=== PATIENT | female | born 1995 | race Two or more races ===

== ENCOUNTER 2020-09-27 10:13 | Outpatient (CLI) | payer OTHER | END 2020-09-27 10:20 | disposition home or self-care (01) | LOC: LAB 10:13 | PROVIDERS: ATTEND Obstetrics & Gynecology | DX: Z34.81 Encounter for supervision of other normal pregnancy, first trimester (principal) ==

== ENCOUNTER 2021-01-31 12:18 | Outpatient (CLI) | payer OTHER | END 2021-01-31 12:42 | disposition home or self-care (01) | LOC: NST 12:18 | PROVIDERS: ATTEND Obstetrics & Gynecology | DX: Z34.83 Encounter for supervision of other normal pregnancy, third trimester (principal) ==

== ENCOUNTER 2021-02-07 10:35 | Outpatient (CLI) | payer OTHER | END 2021-02-07 11:04 | disposition home or self-care (01) | LOC: NST 10:35 | PROVIDERS: ATTEND Obstetrics & Gynecology | DX: Z34.03 Encounter for supervision of normal first pregnancy, third trimester (principal) ==

== ENCOUNTER 2021-02-11 15:15 | Inpatient (IN) | payer OTHER ==
[~2021-02-11] VITALS: Ht 165.1 cm; Wt 75.7 kg
[2021-02-25] MEDS ORDERED: PRENATAL + DHA1 EAC1 PO (07:58)
== END 2021-02-26 16:16 | disposition home or self-care (01) | DRG 807 ==
LOC: OB/GYN 02-24 05:17 → LDR 02-24 05:17 → OB/GYN 02-24 11:45 → LDR 02-24 15:15 → OB/GYN 02-26 16:16
PROVIDERS: ADMIT Obstetrics & Gynecology; ATTEND Obstetrics & Gynecology
PROC: 10E0XZZ Delivery of Products of Conception, External Approach (ICD-10-PCS; principal; 2021-02-24)
PROC: 0HQ9XZZ Repair Perineum Skin, External Approach (ICD-10-PCS; 2021-02-24)
PROC: 4A1HXFZ Monitoring of Products of Conception, Cardiac Rhythm, External Approach (ICD-10-PCS; 2021-02-24)
DX: O70.0 First degree perineal laceration during delivery (principal); Z37.0 Single live birth; Z3A.39 39 weeks gestation of pregnancy

== ENCOUNTER 2021-02-18 14:33 | Outpatient (CLI) | payer OTHER | END 2021-02-18 15:00 | disposition home or self-care (01) | LOC: NST 14:33 | PROVIDERS: ATTEND Obstetrics & Gynecology Maternal & Fetal Medicine | DX: Z34.03 Encounter for supervision of normal first pregnancy, third trimester (principal) ==

== ENCOUNTER 2022-11-05 15:11 | Emergency (ER) | payer OTHER ==
[~2022-11-05] VITALS: Ht 165.1 cm; Wt 68.0 kg
[~2022-11-05 15:11] MED LIST: PRENATAL + DHA1 EAC1 PO
== END 2022-11-05 19:57 | disposition home or self-care (01) ==
LOC: ER 15:11
DX: O21.0 Mild hyperemesis gravidarum (principal); Z3A.11 11 weeks gestation of pregnancy

== ENCOUNTER 2022-12-08 15:44 | Outpatient (CLI) | payer OTHER | END 2022-12-08 17:06 | disposition home or self-care (01) | LOC: PRENATAL 15:44 | PROVIDERS: ATTEND Obstetrics & Gynecology Maternal & Fetal Medicine | DX: O35.9XX0 Maternal care for (suspected) fetal abnormality and damage, unspecified, not applicable or unspecified (principal); O35.3XX0 Maternal care for (suspected) damage to fetus from viral disease in mother, not applicable or unspecified; Z3A.19 19 weeks gestation of pregnancy ==

== ENCOUNTER 2023-03-08 14:58 | Outpatient (CLI) | payer OTHER | END 2023-03-08 16:53 | disposition home or self-care (01) | LOC: PRENATAL 14:58 | PROVIDERS: ATTEND Obstetrics & Gynecology Maternal & Fetal Medicine | DX: O26.849 Uterine size-date discrepancy, unspecified trimester (principal); O36.8199 Decreased fetal movements, unspecified trimester, other fetus; O36.8310 Maternal care for abnormalities of the fetal heart rate or rhythm, first trimester, not applicable or unspecified; Z3A.32 32 weeks gestation of pregnancy ==

== ENCOUNTER 2023-03-23 09:57 | Outpatient (CLI) | payer OTHER | END 2023-03-23 20:07 | disposition home or self-care (01) | LOC: PRENATAL 09:57 | PROVIDERS: ATTEND Obstetrics & Gynecology Maternal & Fetal Medicine | DX: O36.8199 Decreased fetal movements, unspecified trimester, other fetus (principal); O36.8310 Maternal care for abnormalities of the fetal heart rate or rhythm, first trimester, not applicable or unspecified; Z3A.34 34 weeks gestation of pregnancy ==

== ENCOUNTER 2023-04-07 08:20 | Outpatient (CLI) | payer OTHER | END 2023-04-07 09:26 | disposition home or self-care (01) | LOC: PRENATAL 08:20 | PROVIDERS: ATTEND Obstetrics & Gynecology Maternal & Fetal Medicine | DX: O26.849 Uterine size-date discrepancy, unspecified trimester (principal); O36.8199 Decreased fetal movements, unspecified trimester, other fetus; O36.8310 Maternal care for abnormalities of the fetal heart rate or rhythm, first trimester, not applicable or unspecified; Z3A.36 36 weeks gestation of pregnancy ==

== ENCOUNTER 2023-05-03 11:38 | Inpatient (IN) | payer OTHER ==
[~2023-05-03] VITALS: Ht 165.1 cm; Wt 81.6 kg
[2023-05-05 09:38] LABS: HEMATOCRIT 30.7 % (36.0-45.00); HEMOGLOBIN 9.9 g/dL (12.0-15.00); MEAN CELL VOLUME 74.6 fL (80.00-100.00); MEAN CORPUSCULAR HEMOGLOBIN 24.1 pg (27.00-32.0); MEAN CORPUSCULAR HGB CONC 32.3 g/dl (32.0-36.0); PLATELET COUNT 281 K/uL (150-450); RED BLOOD COUNT 4.11 M/uL (4.00-6.00); RED CELL DISTRIBUTION WIDTH 16.1 % (11.5-14.5)
[2023-05-05 10:22] LABS: INR 1.04; PARTIAL THROMBOPLASTIN TIME 29.1 SECONDS (22.0-34.0); PROTHROMBIN TIME 10.9 SECONDS (9.0-11.5)
[2023-05-05 12:54] LABS: PH,URINE 6.5 (5.0-8.0); URINE APPEARANCE Clear; URINE BILIRRUBIN Negative (NEGATIVE); URINE BLOOD Negative; URINE COLOR Yellow; URINE GLUCOSE Negative (NEGATIVE); URINE LEUKOCYTE Negative; URINE NITRATE Negative; URINE PROTEIN Negative (NEGATIVE)
[2023-05-05 12:57] LABS: URINE BACTERIA 123.4 uL (0.0-1933); URINE EPITHELIAL CELLS 13.7 uL (0.0-38.8)
[2023-05-05 13:00] LABS: URINE RBC 1.1 uL (0.0-20.8)
[2023-05-05] MEDS ORDERED: ACETAMINOPHEN325 M1 (16:27)
[2023-05-05 20:49] LABS: ABG PH 7.322 (7.35-7.45); ABG PO2 26.5 mmHg (80-100); ABG pCO2 40.4 mmHg (35-45); BASE EXCESS -5.3 mmol/l; BICARBONATE 20.4 mmol/l (23-25); SaO2 41.8 %; Tco2 21.6 mmol/l; o2 21 %
[2023-05-06 06:20] LABS: HEMATOCRIT 29.5 % (36.0-45.00); HEMOGLOBIN 9.6 g/dL (12.0-15.00); MEAN CORPUSCULAR HEMOGLOBIN 24.2 pg (27.00-32.0); MEAN CORPUSCULAR HGB CONC 32.7 g/dl (32.0-36.0); PLATELET COUNT 259 K/uL (150-450); RED BLOOD COUNT 3.98 M/uL (4.00-6.00); RED CELL DISTRIBUTION WIDTH 16.3 % (11.5-14.5)
== END 2023-05-07 16:04 | disposition home or self-care (01) | DRG 807 ==
LOC: LDR 05-05 07:48 → OB/GYN 05-05 18:23
PROVIDERS: ADMIT Obstetrics & Gynecology; ATTEND Obstetrics & Gynecology
PROC: 10E0XZZ Delivery of Products of Conception, External Approach (ICD-10-PCS; principal; 2023-05-05)
PROC: 3E033VJ Introduction of Other Hormone into Peripheral Vein, Percutaneous Approach (ICD-10-PCS; 2023-05-05)
PROC: 10907ZC Drainage of Amniotic Fluid, Therapeutic from Products of Conception, Via Natural or Artificial Opening (ICD-10-PCS; 2023-05-05)
DX: O80 Encounter for full-term uncomplicated delivery (principal); Z37.0 Single live birth; Z3A.40 40 weeks gestation of pregnancy; Z20.822 Contact with and (suspected) exposure to COVID-19

== ENCOUNTER 2024-01-31 22:55 | Emergency (ER) | payer OTHER ==
[~2024-01-31] VITALS: Ht 165.1 cm; Wt 54.4 kg
[~2024-01-31 22:55] MED LIST changes: +ACETAMINOPHEN325 M1; +PRENA1 CHEW TA1.4 MG PO
[2024-02-01] MEDS ORDERED: ACETAMINOPHEN WITH CODEINE 1 UDTAB TABLET PO STA (00:44)
[2024-02-01] MEDS ORDERED: CIPROFLOXACIN IN 5 % DEXTROSE 400 MG/200 ML PIGGYBAG IV STA (00:44)
[2024-02-01] MEDS ORDERED: CIPROFLOXACIN IN 5 % DEXTROSE 400 MG/200 ML PIGGYBAG IV ONE (00:47)
[2024-02-01 01:21] LABS: PH,URINE 6.5 (5.0-8.0); URINE APPEARANCE Cloudy; URINE BILIRRUBIN Negative (NEGATIVE); URINE BLOOD Negative; URINE COLOR Dark Yellow; URINE GLUCOSE Negative (NEGATIVE); URINE KETONE Trace (NEGATIVE); URINE LEUKOCYTE Moderate; URINE NITRATE Positive; URINE PROTEIN Trace (NEGATIVE)
[2024-02-01 01:25] LABS: URINE BACTERIA 6671.2 uL (0.0-1933); URINE RBC 52.2 uL (0.0-20.8); URINE WBC 1168.2 uL (0.0-23.2)
[2024-02-01 01:48] LABS: URINE CAST 0.15 uL (0.0-1.40)
== END 2024-02-01 02:54 | disposition home or self-care (01) ==
LOC: ER 22:57
DX: N30.90 Cystitis, unspecified without hematuria (principal)